=== PATIENT | male | born 1980 | race Two or more races ===

== ENCOUNTER 2023-01-04 08:58 | Inpatient (IN) | payer OTHER ==
[~2023-01-04] VITALS: Ht 165.1 cm; Wt 68.7 kg
[2023-01-04] MEDS ORDERED: LORazepam 2MG/ML-1ML VIAL IV ONE (09:15)
[2023-01-04] MEDS ORDERED: THIAMINE 100mg/ml INJ (200mg/2ml VIAL) IV ONE (09:15)
[2023-01-04] MEDS ORDERED: SODIUM CHLORIDE 0.9% 1,000 ML IV ONE ×3 (09:15→12:00)
[2023-01-04] MEDS ORDERED: PANTOPRAZOLE 40 MG/10 ML VIAL INJ IV ONE (09:15)
[2023-01-04 09:36] LABS: Basophils # (auto) 0 10 ^3/uL (0-0.2); Eosinophils # (auto) 0 10 ^3/uL (0-0.8); Hematocrit 29.9 % (41.0-53.0)
[2023-01-04 09:38] LABS: Basophils % (auto) 0.3 % (0.0-2.0); Eosinophils % (auto) 0.3 % (0.0-7.0); Hemoglobin 9.9 g/dL (13.5-17.5); Lymphocytes # (auto) 1.2 10 ^3/uL (0.4-5.4); Lymphocytes % (auto) 9.9 % (10.0-50.0); Mean Corpuscular Hemoglobin 33.5 pg (28.0-32.0); Mean Corpuscular Hgb Conc. 33.2 g/dL (32.0-36.0); Mean Corpuscular Volume 100.8 fL (80.0-100.0); Monocytes # (auto) 0.8 10 ^3/uL (0-1.3); Monocytes % (auto) 6.6 % (0.0-12.0); Neutrophils # (auto) 10.4 10 ^3/uL (1.6-8.6); Neutrophils % (auto) 82.9 % (37.0-80.0); Red Blood Cells 2.97 10^6/uL (4.5-5.90); Red Cell Distribution Width 13.2 % (11.8-14.3); White Blood Cell 12.6 10^3/uL (4.4-10.8)
[2023-01-04 09:54] LABS: INR 1.03 (0.9-1.15); Partial Thromboplastin Time 25.9 sec (24.6-33.4)
[2023-01-04 10:03] LABS: Alanine Aminotransferase 20 U/L (16-61); Albumin 3.4 g/dL (3.4-5.0); Anion Gap 7 (5-15); Aspartate Aminotransferase 14 U/L (15-37); BUN/Creatinine Ratio 42.5; Blood Alcohol < 3.0 mg/dL (0-5); Blood Urea Nitrogen 31 mg/dL (7-18); Calcium 7.9 mg/dL (8.5-10.1); Carbon Dioxide 25 mmol/L (21-32); Chloride 106 mmol/L (98-107); GFR African American 150 mL/min; GFR Non-African American 124 mL/min; Glucose 177 mg/dL (74-106); Sodium 138 mmol/L (136-145)
[2023-01-04 10:10] LABS: Alkaline Phosphatase 64 U/L (45-117); Bilirubin, Total 0.8 mg/dL (0.2-1.0); Total Protein 6.4 g/dL (6.4-8.2)
[2023-01-04] MEDS ORDERED: cefTRIAXone 1GM/50ML D5W 50 ML IV ONE (12:00)
[2023-01-04] MEDS ORDERED: ONDANSETRON HCL 4 MG/2 ML VIAL IV PRN (12:00)
[2023-01-04] MEDS ORDERED: LORazepam 2MG/ML-1ML VIAL IV PRN (12:00)
[2023-01-04 12:25] LABS: Magnesium 1.9 mg/dL (1.6-2.6)
[2023-01-04] MEDS ORDERED: NICOTINE 7MG/24HR TOPICAL PATCH TD ONE (13:45)
[2023-01-04] MEDS: FOLIC ACID 1 MG in D5W 5% 50 ML INJ SCH ×7 (17:56→18:59)
[2023-01-04] MEDS: metroNIDAZOLE 500MG/100ML 100 ML IV SCH ×2 (17:59→22:01)
[2023-01-04 18:17] LABS: Hemoglobin 8.5 g/dL (13.5-17.5)
[2023-01-04 18:19] LABS: Hematocrit 23.7 % (41.0-53.0)
[2023-01-04 20:05] LABS: Urine Blood Negative /uL (Negative); Urine Specific Gravity 1.029 (1.001-1.035)
[2023-01-04 20:13] LABS: Alcohol, Urine < 3.0 mg/dL (0-10); Amphetamine Screen, Urine NEGATIVE (NEGATIVE); Barbiturate Scree,Urine NEGATIVE (NEGATIVE); Benzodiazephine Screen, Urine NEGATIVE (NEGATIVE); Cannabinoid Screen, Urine NEGATIVE (NEGATIVE); Cocaine Screen, Urine POSITIVE (NEGATIVE); Opiate Scree,Urine NEGATIVE (NEGATIVE); Phencyclidine Screen, Urine NEGATIVE (NEGATIVE)
[2023-01-04] MEDS: PANTOPRAZOLE 40 MG/10 ML VIAL INJ IV SCH (22:02)
[2023-01-05 00:52] LABS: Hematocrit 19.7 % (41.0-53.0); Hemoglobin 7.1 g/dL (13.5-17.5)
[2023-01-05] MEDS: metroNIDAZOLE 500MG/100ML 100 ML IV SCH ×3 (06:21→22:30)
[2023-01-05 06:25] LABS: Basophils # (auto) 0 10 ^3/uL (0-0.2); Eosinophils # (auto) 0 10 ^3/uL (0-0.8); Monocytes # (auto) 0.4 10 ^3/uL (0-1.3); Neutrophils # (auto) 3.2 10 ^3/uL (1.6-8.6); Red Blood Cells 1.68 10^6/uL (4.5-5.90)
[2023-01-05 06:27] LABS: Basophils % (auto) 0.8 % (0.0-2.0); Eosinophils % (auto) 0.8 % (0.0-7.0); Hematocrit 18.6 % (41.0-53.0); Lymphocytes # (auto) 1.1 10 ^3/uL (0.4-5.4); Lymphocytes % (auto) 23.4 % (10.0-50.0); Mean Corpuscular Hemoglobin 40.8 pg (28.0-32.0); Mean Corpuscular Volume 110.7 fL (80.0-100.0); Monocytes % (auto) 8.7 % (0.0-12.0); Neutrophils % (auto) 66.3 % (37.0-80.0); Red Cell Distribution Width 13.7 % (11.8-14.3); White Blood Cell 4.9 10^3/uL (4.4-10.8)
[2023-01-05 06:35] LABS: Albumin 2.8 g/dL (3.4-5.0); Calcium 7.5 mg/dL (8.5-10.1); Potassium 3.7 mmol/L (3.5-5.1)
[2023-01-05 06:39] LABS: BUN/Creatinine Ratio 32.3; Bilirubin, Total 0.8 mg/dL (0.2-1.0); Total Protein 5.1 g/dL (6.4-8.2)
[2023-01-05 06:56] LABS: Mean Corpuscular Hgb Conc. 36.9 g/dL (32.0-36.0)
[2023-01-05 06:59] LABS: Hemoglobin 6.9 g/dL (13.5-17.5)
[2023-01-05] MEDS ORDERED: LIDOCAINE VISCOUS 2% 15ML UD ONE (08:04)
[2023-01-05] MEDS ORDERED: fentaNYL CITRATE 100 MCG/2 ML VL ONE (08:05)
[2023-01-05] MEDS ORDERED: cefTRIAXone 1GM/50ML D5W 50 ML IV SCH (09:00)
[2023-01-05] MEDS: MIDAZOLAM HCL 2MG/2ML 2ml VIAL (1mg/ml) ONE ×2 (09:23→09:27)
[2023-01-05] MEDS: diphenhdrAMINE HCL 50 MG/1 ML VL ONE ×2 (09:23→09:27)
[2023-01-05] MEDS: NICOTINE 7MG/24HR TOPICAL PATCH TD SCH (10:00)
[2023-01-05] MEDS ORDERED: MULTIPLE VITAMIN TAB PO SCH (10:00)
[2023-01-05] MEDS: THIAMINE 100mg/ml INJ (200mg/2ml VIAL) IV SCH (10:00)
[2023-01-05] MEDS: PANTOPRAZOLE 40 MG/10 ML VIAL INJ IV SCH ×2 (10:00→22:30)
[2023-01-05] MEDS: FOLIC ACID 1 MG in D5W 5% 50 ML INJ SCH (11:36)
[2023-01-05 12:16] LABS: Hematocrit 19.2 % (41.0-53.0)
[2023-01-05 12:39] LABS: Hemoglobin 6.9 g/dL (13.5-17.5)
[2023-01-05 16:46] VITALS: BP 119/76
[2023-01-05 17:02] VITALS: BP 109/65
[2023-01-05 17:46] VITALS: BP 109/65
[2023-01-05 18:25] LABS: Hematocrit 20.8 % (41.0-53.0); Hemoglobin 7.1 g/dL (13.5-17.5)
[2023-01-05 19:48] VITALS: BP 112/59
[2023-01-05 20:00] VITALS: BP 107/55
[2023-01-06] MEDS: metroNIDAZOLE 500MG/100ML 100 ML IV SCH (05:05)
[2023-01-06 05:35] LABS: Basophils # (auto) 0 10 ^3/uL (0-0.2); Basophils % (auto) 1.1 % (0.0-2.0); Eosinophils # (auto) 0.1 10 ^3/uL (0-0.8); Eosinophils % (auto) 3.2 % (0.0-7.0); Hematocrit 25.2 % (41.0-53.0); Lymphocytes # (auto) 1.2 10 ^3/uL (0.4-5.4); Lymphocytes % (auto) 27.4 % (10.0-50.0); Mean Corpuscular Hemoglobin 33.4 pg (28.0-32.0); Mean Corpuscular Hgb Conc. 35.9 g/dL (32.0-36.0); Mean Corpuscular Volume 93.2 fL (80.0-100.0); Monocytes # (auto) 0.5 10 ^3/uL (0-1.3); Monocytes % (auto) 10.5 % (0.0-12.0); Neutrophils # (auto) 2.6 10 ^3/uL (1.6-8.6); Neutrophils % (auto) 57.8 % (37.0-80.0); Red Cell Distribution Width 17.6 % (11.8-14.3); White Blood Cell 4.5 10^3/uL (4.4-10.8)
[2023-01-06 05:48] LABS: Calcium 7.7 mg/dL (8.5-10.1)
[2023-01-06 05:51] LABS: BUN/Creatinine Ratio 10.4; Bilirubin, Total 1.2 mg/dL (0.2-1.0); Total Protein 5.3 g/dL (6.4-8.2)
[2023-01-06 09:00] VITALS: BP 102/64
[2023-01-06] MEDS ORDERED: MULTIPLE VITAMIN TAB PO SCH (10:00)
[2023-01-06] MEDS: PANTOPRAZOLE 40 MG/10 ML VIAL INJ IV SCH (10:09)
[2023-01-06] MEDS: THIAMINE 100mg/ml INJ (200mg/2ml VIAL) IV SCH (10:09)
[2023-01-06] MEDS: NICOTINE 7MG/24HR TOPICAL PATCH TD SCH (10:10)
[2023-01-06] MEDS ORDERED: SODIUM CHLORIDE 0.9% 1,000 ML IV ONE (12:45)
[2023-01-06 12:55] VITALS: BP 112/70
[2023-01-06] MEDS ORDERED: SUCR1TAB22 OR (12:59)
[2023-01-06] MEDS ORDERED: THIA100T10 PO (12:59)
[2023-01-06] MEDS ORDERED: PANT40TA2 PO (12:59)
[2023-01-06] MEDS ORDERED: MULT-351 PO (12:59)
[2023-01-06] MEDS: FOLIC ACID 1 MG in D5W 5% 50 ML INJ SCH (13:01)
[2023-01-06 15:48] VITALS: BP 112/70
[2023-01-06 17:19] VITALS: BP 109/71
== END 2023-01-06 17:35 | disposition home or self-care (01) | DRG 241 ==
LOC: EDBD 08:58 → ER 08:58 → TELE 11:52 → TELE-CENTR 01-05 22:10
PROVIDERS: ADMIT Registered Nurse; ATTEND Nurse Practitioner Acute Care
PROC: 0DB98ZX Excision of Duodenum, Via Natural or Artificial Opening Endoscopic, Diagnostic (ICD-10-PCS; 2023-01-05)
PROC: 0DB68ZX Excision of Stomach, Via Natural or Artificial Opening Endoscopic, Diagnostic (ICD-10-PCS; 2023-01-05)
PROC: 0DB38ZX Excision of Lower Esophagus, Via Natural or Artificial Opening Endoscopic, Diagnostic (ICD-10-PCS; 2023-01-05)
PROC: 30233N1 Transfusion of Nonautologous Red Blood Cells into Peripheral Vein, Percutaneous Approach (ICD-10-PCS; principal; 2023-01-05 09:21)
DX: K29.71 Gastritis, unspecified, with bleeding (principal); K22.11 Ulcer of esophagus with bleeding; F10.10 Alcohol abuse, uncomplicated; K44.9 Diaphragmatic hernia without obstruction or gangrene; Z20.822 Contact with and (suspected) exposure to COVID-19; D64.9 Anemia, unspecified; F14.10 Cocaine abuse, uncomplicated; K29.81 Duodenitis with bleeding; Z72.0 Tobacco use; Z71.6 Tobacco abuse counseling
CPT/HCPCS: 36415; 43239; 70450; 71045; 80053; 80061; 80307; 80320; 81003; 82270; 83036; 83735; 84443; 85014; 85018; 85025; 85610; 85730; 86850; 86900; 86901; 86920; 87426; 93005; 93886; 96361; 96365; C9113; G0378; J0696; J2250; J3490; J7060

== ENCOUNTER 2023-08-21 12:01 | Emergency (ER) | payer SELFPAY ==
[~2023-08-21] VITALS: Ht 165.1 cm; Wt 65.4 kg
[~2023-08-21 12:01] MED LIST: MULT-351 PO; PANT40TA2 PO; SUCR1TAB22 OR; THIA100T10 PO
[2023-08-21 13:26] LABS: Basophils # (auto) 0.1 10 ^3/uL (0-0.2); Basophils % (auto) 2.3 % (0.0-2.0); Eosinophils # (auto) 0 10 ^3/uL (0-0.8); Eosinophils % (auto) 1.2 % (0.0-7.0); Hematocrit 42.6 % (41.0-53.0); Hemoglobin 14.4 g/dL (13.5-17.5); Lymphocytes # (auto) 0.6 10 ^3/uL (0.4-5.4); Lymphocytes % (auto) 20.9 % (10.0-50.0); Mean Corpuscular Hemoglobin 32.3 pg (28.0-32.0); Mean Corpuscular Hgb Conc. 33.8 g/dL (32.0-36.0); Mean Corpuscular Volume 95.6 fL (80.0-100.0); Monocytes # (auto) 0.3 10 ^3/uL (0-1.3); Neutrophils % (auto) 65.6 % (37.0-80.0); Nucleated Red Blood Cells % 0.1 %; Red Blood Cells 4.45 10^6/uL (4.5-5.90); White Blood Cell 3.1 10^3/uL (4.4-10.8)
[2023-08-21 13:58] LABS: Alanine Aminotransferase 141 U/L (7-40); Albumin 4.7 g/dL (3.2-4.8); Alkaline Phosphatase 112 U/L (46-116)
[2023-08-21 13:59] LABS: Anion Gap 12 (5-15); Aspartate Aminotransferase 190 U/L (13-40); BUN/Creatinine Ratio 6.7 (10.0-20.0); Bilirubin, Total 1.4 mg/dL (0.2-1.0); Blood Alcohol 220.9 mg/dL (<10); Blood Urea Nitrogen 6 mg/dL (9-23); Calcium 9.2 mg/dL (8.7-10.4); Carbon Dioxide 24 mmol/L (20-30); Chloride 102 mmol/L (98-107); Glucose 164 mg/dL (74-106); Potassium 3.8 mmol/L (3.5-5.1); Sodium 138 mmol/L (136-145); Total Protein 7.7 g/dL (5.7-8.2)
[2023-08-21 16:48] VITALS: BP 146/100; PULSE 99; RESP 18; TEMP 98; O2SAT 98
== END 2023-08-21 16:50 | disposition home or self-care (01) ==
LOC: ER 12:01
DX: F10.10 Alcohol abuse, uncomplicated (principal); R42 Dizziness and giddiness; F17.210 Nicotine dependence, cigarettes, uncomplicated; Z79.899 Other long term (current) drug therapy; Y90.0 Blood alcohol level of less than 20 mg/100 ml
CPT/HCPCS: 36415; 74176; 80053; 80320; 82962; 85025; 93005

== ENCOUNTER 2023-10-15 12:58 | Inpatient (IN) | payer MEDICAID, OTHER ==
[~2023-10-15] VITALS: Ht 165.1 cm; Wt 70.7 kg
[2023-10-15] MEDS ORDERED: PROCHLORPERAZINE EDISYLATE 5 MG/ML 2ML VIAL IV ONE (13:30)
[2023-10-15] MEDS ORDERED: PANTOPRAZOLE 40 MG/10 ML VIAL INJ IV ONE (13:30)
[2023-10-15] MEDS ORDERED: SODIUM CHLORIDE 0.9% 1,000 ML IVB ONE (13:30)
[2023-10-15 14:54] LABS: Basophils # (auto) 0 10 ^3/uL (0-0.2); Basophils % (auto) 0.5 % (0.0-2.0); Eosinophils # (auto) 0 10 ^3/uL (0-0.8); Hematocrit 42.3 % (41.0-53.0); Hemoglobin 14.2 g/dL (13.5-17.5); Lymphocytes # (auto) 0.4 10 ^3/uL (0.4-5.4); Mean Corpuscular Hemoglobin 33.9 pg (28.0-32.0); Mean Corpuscular Hgb Conc. 33.5 g/dL (32.0-36.0); Mean Corpuscular Volume 101.4 fL (80.0-100.0); Monocytes # (auto) 0.8 10 ^3/uL (0-1.3); Monocytes % (auto) 12.8 % (0.0-12.0); Neutrophils # (auto) 4.7 10 ^3/uL (1.6-8.6); Neutrophils % (auto) 80.7 % (37.0-80.0); Nucleated Red Blood Cells % 0.1 %; Red Blood Cells 4.17 10^6/uL (4.5-5.90); Red Cell Distribution Width 15.7 % (11.8-14.3); White Blood Cell 5.9 10^3/uL (4.4-10.8)
[2023-10-15 15:13] LABS: Alanine Aminotransferase 90 U/L (7-40); Albumin 5.1 g/dL (3.2-4.8); Alkaline Phosphatase 122 U/L (46-116); Anion Gap 22 (5-15); Aspartate Aminotransferase 143 U/L (13-40); BUN/Creatinine Ratio 10.7 (10.0-20.0); Bilirubin, Total 4.9 mg/dL (0.2-1.0); Blood Urea Nitrogen 12 mg/dL (9-23); Carbon Dioxide 17 mmol/L (20-30); Chloride 93 mmol/L (98-107); Glucose 228 mg/dL (74-106); Lipase 155 U/L (12-53); Potassium 3.4 mmol/L (3.5-5.1); Sodium 132 mmol/L (136-145); Total Protein 8.1 g/dL (5.7-8.2)
[2023-10-15 18:30] VITALS: PULSE 108; RESP 22; O2SAT 99
[2023-10-15] MEDS ORDERED: LORazepam 2MG/ML-1ML VIAL IV ONE (19:00)
[2023-10-15] MEDS ORDERED: levETIRAcetam 1000 mg/100ml 100 ML IV ONE (19:00)
[2023-10-15 19:05] LABS: Urine Bacteria NONE SEEN /hpf (None Seen); Urine Blood Negative /uL (Negative); Urine Clarity HAZY (Clear); Urine Color Brown (Yellow); Urine Hyaline Cast MANY /lpf (0 - 2); Urine Mucus MODERATE (None Seen); Urine Protein, UAD 3+ (Negative); Urine Specific Gravity 1.038 (1.001-1.035); Urine WBC 55 /hpf (0 - 3); Urine pH 6.5 (5.0-8.0)
[2023-10-15 19:14] LABS: Amphetamine Screen, Urine Neg (NEGATIVE); Barbiturate Scree,Urine Neg (NEGATIVE); Benzodiazephine Screen, Urine Neg (NEGATIVE); Cocaine Screen, Urine Neg (NEGATIVE); Opiate Scree,Urine Neg (NEGATIVE); Phencyclidine Screen, Urine Neg (NEGATIVE)
[2023-10-15 19:15] LABS: Cannabinoid Screen, Urine Neg (NEGATIVE)
[2023-10-15] MEDS ORDERED: ONDANSETRON HCL 4 MG/2 ML VIAL IV PRN (19:30)
[2023-10-15] MEDS ORDERED: DOCUSATE SOD 100 MG CAP PO PRN (19:30)
[2023-10-15] MEDS ORDERED: HYDROcodone-ACET 5/325MG TAB PO PRN (19:30)
[2023-10-15] MEDS ORDERED: LORazepam 2MG/ML-1ML VIAL IV PRN (19:30)
[2023-10-15] MEDS ORDERED: ACETAMINOPHEN 325 MG TAB PO PRN (19:30)
[2023-10-15 19:32] VITALS: PULSE 118; RESP 19; O2SAT 99
[2023-10-15] MEDS ORDERED: cefTRIAXone 1GM/50ML D5W 50 ML IV ONE (20:15)
[2023-10-15] MEDS: SODIUM CHLORIDE 0.9% 1,000 ML IV SCH (20:48)
[2023-10-15] MEDS: FOLIC ACID 1 MG, MULTIPLE VITAMIN 10 ML, MAGNESIUM SULF SDV 50% 8 MEQ, THIAMINE INJ 100... INJ SCH ×5 (21:05)
[2023-10-15] MEDS: SUCRALFATE 1 GM TAB PO SCH (22:18)
[2023-10-16] VITALS (7 sets, daily range): BP systolic 117–142; BP diastolic 69–93; PULSE 68–104; RESP 16–22; TEMP 98.4–99; O2SAT 97–99
[2023-10-16] MEDS: SODIUM CHLORIDE 0.9% 1,000 ML IV SCH ×4 (02:10→20:41)
[2023-10-16 06:09] LABS: Basophils # (auto) 0 10 ^3/uL (0-0.2); Basophils % (auto) 0.3 % (0.0-2.0); Eosinophils # (auto) 0 10 ^3/uL (0-0.8); Eosinophils % (auto) 0.4 % (0.0-7.0); Hemoglobin 12.2 g/dL (13.5-17.5); Lymphocytes # (auto) 0.9 10 ^3/uL (0.4-5.4); Lymphocytes % (auto) 13.4 % (10.0-50.0); Mean Corpuscular Hemoglobin 33.8 pg (28.0-32.0); Mean Corpuscular Hgb Conc. 33.9 g/dL (32.0-36.0); Mean Corpuscular Volume 99.7 fL (80.0-100.0); Monocytes # (auto) 0.7 10 ^3/uL (0-1.3); Monocytes % (auto) 10.8 % (0.0-12.0); Neutrophils # (auto) 5.1 10 ^3/uL (1.6-8.6); Neutrophils % (auto) 75.1 % (37.0-80.0); Nucleated Red Blood Cells % 0.1 %; Red Blood Cells 3.61 10^6/uL (4.5-5.90); Red Cell Distribution Width 15.3 % (11.8-14.3); White Blood Cell 6.8 10^3/uL (4.4-10.8)
[2023-10-16 06:12] LABS: Alanine Aminotransferase 58 U/L (7-40); Albumin 3.9 g/dL (3.2-4.8); Alkaline Phosphatase 88 U/L (46-116); Calcium 8.8 mg/dL (8.5-10.1); Carbon Dioxide 26 mmol/L (20-30); Chloride 98 mmol/L (98-107); Triglycerides 75 mg/dL (< 150)
[2023-10-16 06:13] LABS: Anion Gap 9 (5-15); Aspartate Aminotransferase 102 U/L (13-40); BUN/Creatinine Ratio 8.5 (10.0-20.0); Bilirubin, Total 3.5 mg/dL (0.2-1.0); Blood Urea Nitrogen 6 mg/dL (9-23); Cholesterol 217 mg/dL (< 200); Glucose 101 mg/dL (74-106); HDL Cholesterol 84 mg/dL (40-59); LDL Cholesterol 118 mg/dL (< 100); Sodium 133 mmol/L (136-145); Total Protein 6.2 g/dL (5.7-8.2)
[2023-10-16] MEDS: SUCRALFATE 1 GM TAB PO SCH ×4 (06:49→21:14)
[2023-10-16] MEDS: cefTRIAXone 1GM/50ML D5W 50 ML IV SCH (08:49)
[2023-10-16] MEDS: PANTOPRAZOLE 40 MG/10 ML VIAL INJ IV SCH (09:51)
[2023-10-16] MEDS ORDERED: POTASSIUM CHL 20 Meq TABLET PO ONE (10:00)
[2023-10-16] MEDS: FOLIC ACID 1 MG, MULTIPLE VITAMIN 10 ML, MAGNESIUM SULF SDV 50% 8 MEQ, THIAMINE INJ 100... INJ SCH ×5 (14:52)
[2023-10-17] MEDS: chlordiazePOXIDE HCL 5 MG CAP PO PRN ×2 (03:14→11:08)
[2023-10-17 05:00] VITALS: BP 126/94; PULSE 103; RESP 16; TEMP 98.2; O2SAT 97
[2023-10-17 06:04] LABS: Basophils # (auto) 0.1 10 ^3/uL (0-0.2); Basophils % (auto) 0.8 % (0.0-2.0); Eosinophils # (auto) 0.1 10 ^3/uL (0-0.8); Eosinophils % (auto) 0.7 % (0.0-7.0); Hemoglobin 12.3 g/dL (13.5-17.5); Lymphocytes # (auto) 1.3 10 ^3/uL (0.4-5.4); Mean Corpuscular Hemoglobin 33.2 pg (28.0-32.0); Mean Corpuscular Hgb Conc. 33.2 g/dL (32.0-36.0); Mean Corpuscular Volume 99.8 fL (80.0-100.0); Monocytes # (auto) 0.7 10 ^3/uL (0-1.3); Neutrophils # (auto) 5.3 10 ^3/uL (1.6-8.6); Neutrophils % (auto) 71.5 % (37.0-80.0); Nucleated Red Blood Cells % 0.1 %; Red Cell Distribution Width 14.6 % (11.8-14.3); White Blood Cell 7.4 10^3/uL (4.4-10.8)
[2023-10-17 06:25] LABS: INR 1.06 (0.9-1.15); Partial Thromboplastin Time 31.9 SEC (24.5-34.5); Prothrombin Time 11.1 sec (9.3-11.8)
[2023-10-17 06:28] LABS: Alanine Aminotransferase 67 U/L (7-40); Albumin 4.5 g/dL (3.2-4.8); Alkaline Phosphatase 103 U/L (46-116); Anion Gap 9 (5-15); Aspartate Aminotransferase 113 U/L (13-40); Bilirubin, Total 3.3 mg/dL (0.2-1.0); Carbon Dioxide 24 mmol/L (20-30); Chloride 100 mmol/L (98-107); Glucose 109 mg/dL (74-106); Lipase 154 U/L (12-53); Magnesium 1.8 mg/dL (1.6-2.6); Potassium 3.8 mmol/L (3.5-5.1); Sodium 133 mmol/L (136-145); Total Protein 7.1 g/dL (5.7-8.2)
[2023-10-17 06:36] LABS: BUN/Creatinine Ratio 7.9 (10.0-20.0); Blood Urea Nitrogen < 5 mg/dL (9-23)
[2023-10-17] MEDS: SODIUM CHLORIDE 0.9% 1,000 ML IV SCH ×2 (06:42→12:00)
[2023-10-17] MEDS: SUCRALFATE 1 GM TAB PO SCH ×2 (06:42→09:16)
[2023-10-17] MEDS: PANTOPRAZOLE 40 MG/10 ML VIAL INJ IV SCH (09:16)
[2023-10-17] MEDS: cefTRIAXone 1GM/50ML D5W 50 ML IV SCH (09:16)
[2023-10-17 09:17] VITALS: BP 116/73; PULSE 89; RESP 20; TEMP 98.2; O2SAT 98
[2023-10-17] MEDS: FOLIC ACID 1 MG, MULTIPLE VITAMIN 10 ML, MAGNESIUM SULF SDV 50% 8 MEQ, THIAMINE INJ 100... INJ SCH ×5 (12:51)
[2023-10-17 12:58] VITALS: BP 112/80; PULSE 102; RESP 18; TEMP 98; O2SAT 99
[2023-10-19 09:25] LABS: Hepatitis B Surface Antigen Negative (Negative)
[2023-10-19 09:46] LABS: Hepatitis C Antibody Negative (Negative)
== END 2023-10-17 15:50 | disposition left against medical advice (07) ==
LOC: ER 12:58 → OVERFLOW 19:40 → EAST 23:47
PROVIDERS: ADMIT Nurse Practitioner Family; ATTEND Internal Medicine Geriatric Medicine
DX: K74.60 Unspecified cirrhosis of liver (principal); K85.20 Alcohol induced acute pancreatitis without necrosis or infection; D69.6 Thrombocytopenia, unspecified; E87.1 Hypo-osmolality and hyponatremia; R56.9 Unspecified convulsions; K76.0 Fatty (change of) liver, not elsewhere classified; Z53.29 Procedure and treatment not carried out because of patient's decision for other reasons; N30.00 Acute cystitis without hematuria; F10.139 Alcohol abuse with withdrawal, unspecified; E87.6 Hypokalemia; F41.9 Anxiety disorder, unspecified; F17.210 Nicotine dependence, cigarettes, uncomplicated; K21.9 Gastro-esophageal reflux disease without esophagitis
CPT/HCPCS: 36415; 74176; 80053; 80061; 80307; 80320; 81001; 83036; 83690; 83735; 85025; 85610; 85730; 86803; 87340; 96361; 96365; 96367; 96375; C9113; G0378; J0696